=== PATIENT | female | born 1940 | race Caucasian/White ===

== ENCOUNTER 2017-05-21 08:23 | Day surgery (SDC) | payer MEDICARE, BC ==
[~2017-05-21 08:23] MED LIST: Lactated Ringers 1,000 ML IV SCH; Lidocaine 1%/Sod Bicarbonate in NS 8.4% 1 ML Syringe PRN; Sodium Chloride 0.9% 10 ML Syringe FLUSH PRN
--- NOTE | 2017-05-21 09:26 | PCM.PREANE ---
Preanesthetic Assessment - Procedure Proposed Procedure: Diagnostic colonoscopy - Anesthesia/Transfusion/Family Hx Anesthesia History: Prior Anesthesia Without Reaction Family History of Anesthesia Reaction: No Transfusion History: No Prior Transfusion(s) - Review of Systems General: No Symptoms Pulmonary: No Symptoms Cardiovascular: No Symptoms Gastrointestinal: No symptoms Neurological: No Symptoms Other: Reports: Easy Bruising, Thyroid Problems (hypothyroidism) - Physical Assessment NPO Status Date: 05/20/17 NPO Status Time: 23:00 O2 Sat by Pulse Oximetry: 97 Respiratory Rate: 16 Vital Signs: Last Vital Signs Temp 37.0 C 05/21/17 08:30 Pulse 66 05/21/17 08:30 Resp 16 05/21/17 08:30 BP 131/51 L 05/21/17 08:30 Pulse Ox 97 05/21/17 08:30 Height: 1.68 m Weight: 61.689 kg ASA Class: 2 Mental Status: Alert & Oriented x3 Airway Class: Mallampati = 1 Dentition: Reports: Normal Dentition, Dentures (upper and lower ) Thyro-Mental Finger Breadths: 3 Mouth Opening Finger Breadths: 3 ROM/Head Extension: Full Lungs: Clear to auscultation, Normal respiratory effort Cardiovascular: Regular Rate, Regular Rhythm - Allergies Allergies/Adverse Reactions: Allergies Allergy/AdvReac Type Severity Reaction Status Date / Time grass pollen Allergy Cannot Verified 05/21/17 08:50 Remember levofloxacin Allergy Cannot Verified 05/21/17 08:50 Remember - Blood Blood Available: No Product(s) Available: None - Anesthesia Plan Pre-Op Medication Ordered: None - Acknowledgements Anesthesia Type Planned: MAC Pt an Appropriate Candidate for the Planned Anesthesia: Yes Alternatives and Risks of Anesthesia Discussed w Pt/Guardian: Yes Pt/Guardian Understands and Agrees with Anesthesia Plan: Yes PreAnesthesia Questionnaire HEENT History: Reports: Sinusitis, Other (See Below) Other HEENT History: wears dentures Cardiovascular History: Reports: Hypertension, Other (See Below) Other Cardiovascular History: atypical chest pain, edema Respiratory History: Reports: Bronchitis, Recurrent, Other (See Below) Other Respiratory History: cough Genitourinary History: Reports: UTI, Recurrent 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: Musculoskeletal History: Reports: Arthritis, Osteoporosis, Other (See Below) Other Musculoskeletal History: adhesive capsulitis of bialteral shoulders, generalized muscle weakness Neurological History: Reports: Other (See Below) Other Neuro History: cervical radiculopathy Psychiatric History: Reports: Other (See Below) Other Psychiatric History: fatigue Endocrine/Metabolic History: Reports: Hypothyroidism Hematologic History: Reports: Other (See Below) Other Hematologic History: hypokalemia Immunologic History: Reports: Other (See Below) Other Immunologic History: herpes zoster virus Oncologic (Cancer) History: Reports: None Dermatologic History: Reports: Other (See Below) Other Dermatologic History: non healing skin lesion of nose - Infectious Disease History Infectious Disease History: Reports: Other (See Below) Other Infectious Disease History: herpes zoster virus - Past Surgical History Head Surgeries/Procedures: Reports: None HEENT Surgical History: Reports: Cataract Surgery GI Surgical History: Reports: Cholecystectomy Female Surgical History: Reports: Section, Tubal Ligation Musculoskeletal Surgical History: Reports: Other (See Below) Other Musculoskeletal Surgeries/Procedures:: knee surgery, low back surgery Oncologic Surgical History: Reports: None - SUBSTANCE USE Smoking Status *Q: Current Some Day Smoker (1pack every 2 days for 50 years) Second Hand Smoke Exposure: No Recreational Drug Use History: No - HOME MEDS Home Medications: Home Meds Biotin 5,000 mg PO DAILY 05/20/17 [History] Calcium Carbonate/Vitamin D3 [Calcium 500 + Vit D Caplet] 3 tab PO DAILY [History] Cholecalciferol (Vitamin D3) [Vitamin D3] 1,000 unit PO DAILY 05/20/17 [History] Cinnamon Bark [Cinnamon] 1,000 mg PO DAILY 05/20/17 [History] Hydrochlorothiazide 12.5 mg PO DAILY 05/20/17 [History] Magnesium 200 mg PO DAILY 05/20/17 [History] Niacin 500 mg PO DAILY 05/20/17 [History] Matador-3/DHA/Epa/Fish Oil [Fish Oil 1,000 mg Softgel] 1 cap PO DAILY 05/20/17 [ History] Vitamin C/Biotin [Hair, Skin and Nails Gummies] 1 tab PO DAILY 05/20/17 [History ] - CURRENT (IN HOUSE) MEDS Current Meds: Current Medications Lactated Ringer's (Ringers, Lactated) 1,000 mls @ 125 mls/hr IV ASDIRECTED JEREMIAS Stop: 05/21/17 23:00 Last Admin: 05/21/17 08:45 Dose: 125 mls/hr Lidocaine/Sodium Bicarbonate (Buffered Lidocaine 1% In Ns 8.4%) 0.25 ml .XX ONETIME PRN PRN Reason: Prior to IV Start Stop: 05/21/17 18:00 Last Admin: 05/21/17 08:45 Dose: 0.25 ml Sodium Chloride (Saline Flush) 10 ml FLUSH ASDIRECTED PRN PRN Reason: Keep Vein Open Stop: 05/21/17 18:00
[2017-05-21] MEDS ORDERED: Propofol 200 MG/20 ML SDV ONE ×2 (10:08→11:24)
--- NOTE | 2017-05-21 11:37 | PCM48HPAN ---
Post Anesthesia Note - EVALUATION WITHIN 48HRS OF ANESTHETIC Vital Signs in Normal Range: Yes Patient Participated in Evaluation: Yes Respiratory Function Stable: Yes Airway Patent: Yes Cardiovascular Function Stable: Yes Hydration Status Stable: Yes Pain Control Satisfactory: Yes Nausea and Vomiting Control Satisfactory: Yes Mental Status Recovered: Yes
--- NOTE | 2017-05-21 11:39 | PCM.OPNOTE ---
[id number] with cold forceps polypectomy of a rectal polyp and a diminutive sigmoid polyp Findings: 1. External hemorrhoid with anal tag 2. Sigmoid diverticulosis 3. Diminutive rectal polyp and sigmoid polyp both less than 5 mm in diameter 4. Grossly normal ileocecal valve No gross large mass lesions. Pre Op Diagnosis: History of weight loss and a thickened terminal ileum by CT scan Post-Op Diagnosis: 1. Diminutive sigmoid and rectal polyps. 2. Sigmoid diverticulosis. 3. Anal tags Anesthesia Technique: MAC, Moderate Sedation Primary Surgeon: Carl Garcia Pathology: Small polyps EBL in mLs: 0 Complications: None Free Text/Narrative:: After adequate IV sedation and analgesia was obtained the patient was placed on her left side. Perianal inspection and digital rectal examination were performed next and were remarkable for anal tags. A lubricated colonoscope was inserted into the rectum and advanced under direct vision to the cecum. The terminal ileum was identified and briefly intubated and the mucosa as well as the ileocecal valve area were grossly normal. Technical difficulties prevented me from reintubating the terminal ileum to perform a biopsy. The cecum right colon transverse and descending colons were endoscopically normal. There were diminutive polyps in the rectum and sigmoid which were removed with cold forceps. The specimens were retrieved and the areas were hemostatic. The rectum was otherwise unremarkable. Air was removed as I finished the procedure which she tolerated well. Line Worker photographs were taken for the patient for the record.
[2017-05-21] MEDS ORDERED: Lactated Ringers 1,000 ML ONE (11:43)
[2017-05-21 12:10] VITALS: BP 129/62
== END 2017-05-21 12:05 | disposition home or self-care (01) ==
LOC: JD.SDS 08:23
PROVIDERS: ATTEND Surgery
PROC: 0DBP8ZZ Excision of Rectum, Via Natural or Artificial Opening Endoscopic (ICD-10-PCS; principal; 2017-05-21)
PROC: 0DBN8ZZ Excision of Sigmoid Colon, Via Natural or Artificial Opening Endoscopic (ICD-10-PCS; 2017-05-21)
DX: K63.5 Polyp of colon (principal); K62.1 Rectal polyp; K57.30 Diverticulosis of large intestine without perforation or abscess without bleeding; K64.4 Residual hemorrhoidal skin tags; M54.12 Radiculopathy, cervical region; M19.90 Unspecified osteoarthritis, unspecified site; R53.82 Chronic fatigue, unspecified; I10 Essential (primary) hypertension; E87.6 Hypokalemia; E03.9 Hypothyroidism, unspecified; F17.210 Nicotine dependence, cigarettes, uncomplicated; M81.0 Age-related osteoporosis without current pathological fracture; Z87.440 Personal history of urinary (tract) infections; Z86.19 Personal history of other infectious and parasitic diseases; Z88.1 Allergy status to other antibiotic agents; Z91.048 Other nonmedicinal substance allergy status; Z79.899 Other long term (current) drug therapy; Z98.51 Tubal ligation status; Z98.49 Cataract extraction status, unspecified eye; Z90.49 Acquired absence of other specified parts of digestive tract; Z98.890 Other specified postprocedural states
CPT/HCPCS: 45380; 88305; J7120; 00810; J2704

== ENCOUNTER 2019-10-13 13:51 | Emergency (ER) | payer MEDICARE, BC ==
[2019-10-13 15:08] VITALS: BP 149/77; PULSE 70
[2019-10-13] MEDS ORDERED: Sodium Chloride 0.9% 10 ML Syringe FLUSH PRN (15:29)
--- NOTE | 2019-10-13 15:29 | EDM.PDOC ---
ED HPI GENERAL MEDICAL PROBLEM - General Chief Complaint: Gastrointestinal Problem Stated Complaint: DIARRHEA Time Seen by Provider: 10/13/19 15:15 Source of Information: Reports: Patient, RN Notes Reviewed History Limitations: Reports: No Limitations - History of Present Illness INITIAL COMMENTS - FREE TEXT/NARRATIVE: Patient is an 78-year-old female who presents to the ED for the evaluation of diarrhea. She did discuss this with her primary care doctor, Dr. Leilani Mann, and was told to take probiotics for this. But she states she is still having multiple dark explosive stools, that she cannot control. Patient could not get a clinic appointment today, so she comes to the ER for evaluation. The patient states that she has been using Pepto-Bismol, and the probiotics since September for this diarrhea, however nothing seems to really be helping. She denies any fevers or chills, abdominal cramping, or antibiotic use prior to this. She further denies any urinary issues. She states that she does have some stool incontinence, and that she has had to change bed sheets, as she has not been able to make it to the bathroom in time. She further denies any nausea or vomiting, and states that she is eating and drinking as she would normally. She denies any dizziness, or lightheadedness. She notes that she had a colonoscopy done about 2 years ago, and was told this was within normal limits. Patient denies any recent health issues, and states that she thinks she is in fairly good health. The patient cannot really remember the last time she had a good formed stool. - Related Data Allergies Allergy/AdvReac Type Severity Reaction Status Date / Time grass pollen Allergy Cannot Verified 10/13/19 14:08 Remember levofloxacin Allergy Cannot Verified 10/13/19 14:08 Remember Home Meds: Home Meds Biotin 5,000 mg PO DAILY 05/20/17 [History] Calcium Carbonate/Vitamin D3 [Calcium 500 + Vit D Caplet] 3 tab PO DAILY [History] Cholecalciferol (Vitamin D3) [Vitamin D3] 1,000 unit PO DAILY 05/20/17 [History] Cinnamon Bark [Cinnamon] 1,000 mg PO DAILY 05/20/17 [History] Hydrochlorothiazide 12.5 mg PO DAILY 05/20/17 [History] Magnesium 200 mg PO DAILY 05/20/17 [History] Niacin 500 mg PO DAILY 05/20/17 [History] Vitamin C/Biotin [Hair, Skin and Nails Gummies] 1 tab PO DAILY 05/20/17 [History ] Cilostazol 100 mg PO DAILY 10/13/19 [History] atorvaSTATin [Lipitor] 20 mg PO BEDTIME 10/13/19 [History] Past Medical History HEENT History: Reports: Sinusitis, Other (See Below) Other HEENT History: wears dentures Cardiovascular History: Reports: Hypertension, Other (See Below) Other Cardiovascular History: atypical chest pain, edema Respiratory History: Reports: Bronchitis, Recurrent, Other (See Below) Other Respiratory History: cough Gastrointestinal History: Reports: Cholelithiasis, Chronic Diarrhea Other Gastrointestinal History: colonoscopy within the last year Genitourinary History: Reports: UTI, Recurrent 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: Musculoskeletal History: Reports: Arthritis, Osteoporosis, Other (See Below) Other Musculoskeletal History: adhesive capsulitis of bialteral shoulders, generalized muscle weakness Neurological History: Reports: Other (See Below) Other Neuro History: cervical radiculopathy Psychiatric History: Reports: Other (See Below) Other Psychiatric History: fatigue Endocrine/Metabolic History: Reports: Hypothyroidism Hematologic History: Reports: Other (See Below) Other Hematologic History: hypokalemia Immunologic History: Reports: Other (See Below) Other Immunologic History: herpes zoster virus Oncologic (Cancer) History: Reports: None Dermatologic History: Reports: Other (See Below) Other Dermatologic History: non healing skin lesion of nose taken care of in 2018 - Infectious Disease History Infectious Disease History: Reports: Chicken Pox, Herpes Other Infectious Disease History: herpes zoster virus - Past Surgical History Head Surgeries/Procedures: Reports: None HEENT Surgical History: Reports: Cataract Surgery GI Surgical History: Reports: Cholecystectomy Female Surgical History: Reports: Section, Tubal Ligation Musculoskeletal Surgical History: Reports: Other (See Below) Other Musculoskeletal Surgeries/Procedures:: knee surgery, low back surgery Oncologic Surgical History: Reports: None Social & Family History - Family History Cardiac: Reports: CAD, AR, Stent GI: Reports: Other (See Below) Other GI Family History: chrones - Tobacco Use Smoking Status *Q: Current Some Day Smoker Years of Tobacco use: 60 Packs/Tins Daily: 0.2 - Caffeine Use Caffeine Use: Reports: Coffee, Tea - Recreational Drug Use Recreational Drug Use: No ED ROS GENERAL - Review of Systems Review Of Systems: See Below Constitutional: Denies: Fever, Chills, Weakness, Decreased Appetite, Weight Loss Respiratory: Denies: Shortness of Breath Cardiovascular: Denies: Chest Pain GI/Abdominal: Reports: Black Stool, Diarrhea. Denies: Abdominal Pain, Decreased Appetite, Nausea, Vomiting : Denies: Dysuria, Frequency, Urgency Musculoskeletal: Denies: Back Pain ED EXAM, GI/ABD - Physical Exam Exam: See Below Exam Limited By: No Limitations General Appearance: Alert, WD/WN, No Apparent Distress Eyes: Bilateral: Normal Appearance Throat/Mouth: Normal Inspection, Normal Lips, Normal Teeth, Normal Gums, Normal Oropharynx, Normal Voice, No Airway Compromise Head: Atraumatic, Normocephalic Neck: Normal Inspection Respiratory/Chest: No Respiratory Distress, Lungs Clear, Normal Breath Sounds, No Accessory Muscle Use, Chest Non-Tender Cardiovascular: Normal Peripheral Pulses, Regular Rate, Rhythm, No Edema, No Murmur GI/Abdominal Exam: Normal Bowel Sounds, Soft, Non-Tender, No Distention, No Mass Rectal (Female) Exam: Normal Exam, Normal Rectal Tone, Heme - Stool (dark brown formed soft stool noted on glove). No: Tenderness Extremities: Normal Inspection, Normal Capillary Refill Neurological: Alert, Oriented, Normal Cognition, No Motor/Sensory Deficits Psychiatric: Normal Affect, Normal Mood Skin Exam: Warm, Dry, Intact, Normal Color, No Rash Course - Vital Signs Last Recorded V/S: Last Vital Signs Temp 98.4 F 10/13/19 15:06 Pulse 70 10/13/19 15:06 Resp 28 H 10/13/19 15:06 BP 149/77 H 10/13/19 15:06 Pulse Ox 92 L 10/13/19 15:06 - Orders/Labs/Meds Orders: Active Orders 24 hr Category Date Time Status Peripheral IV Care [RC] . DIRECTED Care 10/13/19 15:30 Active C DIFFICILE PCR W/REFLEX [MOLEC] Stat Lab 10/13/19 16:04 Ordered CULTURE STOOL + SHIGATOX [RM] Stat Lab 10/13/19 16:03 Ordered TYPE AND SCREEN [BBK] Stat Lab 10/13/19 15:53 Stop Req Sodium Chloride 0.9% [Saline Flush] Med 10/13/19 15:29 Active 10 ml FLUSH ASDIRECTED PRN Peripheral IV Insertion Adult [OM.PC] Routine Oth 10/13/19 15:29 Ordered Medication Orders Sodium Chloride (Saline Flush) 10 ml FLUSH ASDIRECTED PRN PRN Reason: Keep Vein Open Last Admin: 10/13/19 16:21 Dose: 10 ml Labs: Laboratory Tests 10/13/19 10/13/19 Range/Units 15:53 15:53 WBC 3.96 L (3.98-10.04) K/mm3 RBC 4.49 (3.98-5.22) M/mm3 Hgb 12.3 (11.2-15.7) gm/dl Hct 37.3 (34.1-44.9) % MCV 83.1 (79.4-94.8) fl MCH 27.4 (25.6-32.2) pg MCHC 33.0 (32.2-35.5) g/dl RDW Std Deviation 45.9 (36.4-46.3) fL Plt Count 252 (182-369) K/mm3 MPV 9.9 (9.4-12.3) fl Neut % (Auto) 49.2 (34.0-71.1) % Lymph % (Auto) 37.1 (19.3-51.7) % Summers % (Auto) 11.6 (4.7-12.5) % Eos % (Auto) 1.5 (0.7-5.8) Baso % (Auto) 0.3 (0.1-1.2) % Neut # (Auto) 1.95 (1.56-6.13) K/mm3 Lymph # (Auto) 1.47 (1.18-3.74) K/mm3 Summers # (Auto) 0.46 H (0.24-0.36) K/mm3 Eos # (Auto) 0.06 (0.04-0.36) K/mm3 Baso # (Auto) 0.01 (0.01-0.08) K/mm3 Sodium 140 (136-145) mEq/L Potassium 3.4 L (3.5-5.1) mEq/L Chloride 103 (98-107) mEq/L Carbon Dioxide 27 (21-32) mEq/L Anion Gap 13.4 (5-15) BUN 15 (7-18) mg/dL Creatinine 0.7 (0.55-1.02) mg/dL Est Cr Clr Drug Dosing 57.68 mL/min Estimated GFR (MDRD) > 60 (>60) mL/min BUN/Creatinine Ratio 21.4 H (14-18) Glucose 87 (83-115) mg/dL Calcium 9.4 (8.5-10.1) mg/dL Total Bilirubin 0.5 (0.2-1.0) mg/dL AST 27 (15-37) U/L ALT 20 (14-59) U/L Alkaline Phosphatase 71 (46-116) U/L Total Protein 7.3 (6.4-8.2) g/dl Albumin 3.0 L (3.4-5.0) g/dl Globulin 4.3 gm/dL Albumin/Globulin Ratio 0.7 L (1-2) Meds: Medications Generic Name Dose Route Start Last Admin Trade Name Freq PRN Reason Stop Dose Admin Sodium Chloride 10 ml 10/13/19 15:29 10/13/19 16:21 Saline Flush FLUSH 10 ml ASDIRECTED PRN Administration Keep Vein Open - Re-Assessments/Exams Free Text/Narrative Re-Assessment/Exam: 10/13/19 16:13 Patient presents to the ED for the evaluation of diarrhea like stools for multiple weeks. Did order CBC, CMP for initial evaluation, with an IV to be placed, in case we should need to give her IV fluids. I believe that her black stools are due to the Pepto use. At this point in time I am quite unsure as to what is causing her diarrhea stools. Will obtain stool studies if she is able to provide us with a sample. 10/13/19 18:35 She has not been able to provide us with a stool sample, and labs are essentially within normal limits, and there is no acute worrisome metabolic abnormalities. We will have her try some loperamide if she wants symptomatic relief, otherwise have her start clear liquid diet for the next few days and advance to bland as tolerated see if this does not help some of the symptoms. Of note, the patient is on cilostazol, a common side effect of this drug is diarrhea upon review of her medication list. This was noted by Dr. Jain after he came on shift. Departure - Departure Time of Disposition: 18:36 Disposition: Home, Self-Care 01 Condition: Fair Clinical Impression: Diarrhea Qualifiers: Diarrhea type: unspecified type Qualified Code(s): R19.7 - Diarrhea, unspecified - Discharge Information *PRESCRIPTION DRUG MONITORING PROGRAM REVIEWED*: No *COPY OF PRESCRIPTION DRUG MONITORING REPORT IN PATIENT ZULAY: No Instructions: Diarrhea, Adult, [id number] Referrals: Leilani Mann MD [Primary Care Provider] - Forms: ED Department Discharge Additional Instructions: You have been evaluated in the ED for diarrhea. Over the next 24-48 hours please try to limit diet to clear liquids and advance as tolerate to a bland diet to alleviate symptoms of diarrhea. Please refrain from use of Pepto-Bismol, as this can cause your stools to turn dark black. Recommend use of Imodium for diarrhea like stools. Use the instructions listed on the label. Also please continue to use probiotics as previously prescribed by your regular provider. Your laboratory evaluation demonstrated no acute worrisome abnormalities, and you did not have blood in your stool at this time. Please follow-up with your regular care provider for further symptomatic management regarding this diarrhea. Please return to the ED if your symptoms should change or worsen. Sepsis Event Note - Evaluation Sepsis Screening Result: No Definite Risk - Focused Exam Vital Signs: Vital Signs Temp Pulse Resp BP Pulse Ox 10/13/19 15:06 98.4 F 70 28 H 149/77 H 92 L 10/13/19 14:14 98.0 F 80 16 144/79 H 94 L Date Exam was Performed: 10/13/19 Time Exam was Performed: 22:06 - My Orders Last 24 Hours: My Active Orders 10/13/19 15:29 Sodium Chloride 0.9% [Saline Flush] 10 ml FLUSH ASDIRECTED PRN Peripheral IV Insertion Adult [OM.PC] Routine 10/13/19 15:30 Peripheral IV Care [RC] . DIRECTED 10/13/19 15:53 TYPE AND SCREEN [BBK] Stat 10/13/19 16:03 CULTURE STOOL + SHIGATOX [RM] Stat 10/13/19 16:04 C DIFFICILE PCR W/REFLEX [MOLEC] Stat - Assessment/Plan Last 24 Hours: My Active Orders 10/13/19 15:29 Sodium Chloride 0.9% [Saline Flush] 10 ml FLUSH ASDIRECTED PRN Peripheral IV Insertion Adult [OM.PC] Routine 10/13/19 15:30 Peripheral IV Care [RC] . DIRECTED 10/13/19 15:53 TYPE AND SCREEN [BBK] Stat 10/13/19 16:03 CULTURE STOOL + SHIGATOX [RM] Stat 10/13/19 16:04 C DIFFICILE PCR W/REFLEX [MOLEC] Stat
== END 2019-10-13 18:45 | disposition home or self-care (01) ==
LOC: JD.ED 13:51
DX: R19.7 Diarrhea, unspecified (principal); I10 Essential (primary) hypertension; Z88.1 Allergy status to other antibiotic agents; Z91.09 Other allergy status, other than to drugs and biological substances; Z79.899 Other long term (current) drug therapy; F17.210 Nicotine dependence, cigarettes, uncomplicated
CPT/HCPCS: 36415; 80053; 85025; 86850; 86900; 86901; 99284

== ENCOUNTER 2020-12-21 22:42 | Inpatient (IN) | payer MEDICARE, BC ==
--- NOTE | 2020-12-21 22:54 | EDM.PDOC ---
ED HPI GENERAL MEDICAL PROBLEM - General Chief Complaint: Neuro Symptoms/Deficits Stated Complaint: [facility] Time Seen by Provider: 12/21/20 22:50 Source of Information: Reports: EMS History Limitations: Reports: Altered Mental Status - History of Present Illness INITIAL COMMENTS - FREE TEXT/NARRATIVE: A stroke alert was called for this patient. Ms. Carmona is a very pleasant 79-year-old woman who is now brought to the ED by EMS after her son found her on the floor with left-sided facial weakness and left hemiparesis. Her last known normal was not known to us at this time, however, we are told that the patient's son is on his way to the ED, and we will ask him that when he gets here. EMS reported that the patient complained of a headache this afternoon, but denied having any pain to them. They reported that she had left-sided neglect with pronator drift. Here in the ED, the patient's initial BP is found to be mildly elevated at 144/65, otherwise, she is hemodynamically stable, afebrile, saturating 95% on room air. Having no apparent respiratory difficulties, the patient was taken immediately to CT scan. Due to the situation, her recent review of systems is not available to us. The patient's PCP is Dr. Leilani Mann. - Related Data Allergies Allergy/AdvReac Type Severity Reaction Status Date / Time grass pollen Allergy Cannot Verified 12/21/20 22:56 Remember levofloxacin Allergy Cannot Verified 12/21/20 22:56 Remember Home Meds: Home Meds Biotin 5,000 mg PO DAILY 05/20/17 [History] Calcium Carbonate/Vitamin D3 [Calcium 500-Vit D3 125 Caplet] 3 tab PO DAILY 05/20/17 [History] Cholecalciferol (Vitamin D3) [Vitamin D3] 1,000 unit PO DAILY 05/20/17 [History] Cinnamon Bark [Cinnamon] 1,000 mg PO DAILY 05/20/17 [History] Hydrochlorothiazide 12.5 mg PO DAILY 05/20/17 [History] Magnesium 200 mg PO DAILY 05/20/17 [History] Niacin 500 mg PO DAILY 05/20/17 [History] Vitamin C/Biotin [Hair, Skin and Nails Gummies] 1 tab PO DAILY 05/20/17 [History] Benzonatate 100 mg PO TID 12/21/20 [History] Gabapentin [Neurontin] 100 mg PO TID 12/21/20 [History] Gabapentin [Neurontin] 300 mg PO TID PRN 12/21/20 [History] Hydrocodone/Acetaminophen [Hydrocodone-Acetamin 10-325 mg] 1 each PO Q4H PRN 12/21/20 [History] Hydrocodone/Acetaminophen [Hydrocodone-Acetamin 5-325 mg] 1 each PO Q4H PRN 12/21/20 [History] Past Medical History Cardiovascular History: Reports: Hypertension Gastrointestinal History: Reports: Cholelithiasis Musculoskeletal History: Reports: Osteoarthritis, Osteoporosis, Other (See Below) (Bilateral adhesive capsulitis) Neurological History: Reports: Other (See Below) (Cervical radiculopathy) Endocrine/Metabolic History: Reports: Hypothyroidism - Infectious Disease History Infectious Disease History: Reports: Chicken Pox, Herpes, Shingles - Past Surgical History HEENT Surgical History: Reports: Cataract Surgery, Oral Surgery (dental extractions/dentures) GI Surgical History: Reports: Cholecystectomy, Colonoscopy Female Surgical History: Reports: Section, Tubal Ligation Neurological Surgical History: Reports: Lumbar Spine Musculoskeletal Surgical History: Reports: Other (See Below) (knee surgery) Social & Family History - Caffeine Use Caffeine Use: Reports: Coffee, Tea ED ROS GENERAL - Review of Systems Review Of Systems: Unable To Obtain Reason Not Obtained: AMS ED EXAM, NEURO - Physical Exam Exam: See Below Exam Limited By: No Limitations General Appearance: WD/WN, No Apparent Distress, Other (Patient initially awake upon arrival to ED, but was somnolent/drowsy upon return from CT) Eye Exam: Bilateral Eye: EOMI (looks only to the right) Ears: Normal External Exam Nose: Normal Inspection Throat/Mouth: Normal Inspection, Normal Lips, No Airway Compromise Head Exam: Atraumatic, Normocephalic Neck: Normal Inspection, Full Range of Motion Respiratory/Chest: No Respiratory Distress, Lungs Clear, Normal Breath Sounds, No Accessory Muscle Use Cardiovascular: Normal Peripheral Pulses, Regular Rate, Rhythm, No Edema, No Gallop, No JVD, No Murmur, No Rub GI/Abdominal: Normal Bowel Sounds, Soft, Non-Tender, No Organomegaly, No Distention, No Abnormal Bruit, No Mass Neurological: Other (left facial droop, left hemiparesis with left-sided neglect) Back Exam: Normal Inspection, Full Range of Motion, NT Extremities: Normal Inspection, Normal Range of Motion, No Pedal Edema, Normal Capillary Refill Skin Exam: Warm, Dry, Intact, Normal Color, No Rash #1 Interpretation EKG Date: 12/21/20 Time: 22:57 Rhythm: NSR Rate (Beats/Min): 61 Chester: 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) P-Wave: Present (1st degree AVB) QRS: Normal ST-T: Normal QT: Prolonged (QTc 519 ms) Comparison: NA - No Prior EKG Course - Vital Signs Last Recorded V/S: Last Vital Signs Temp 36.9 C 12/22/20 03:31 Pulse 57 L 12/22/20 03:34 Resp 20 12/22/20 03:31 BP 156/103 H 12/22/20 03:31 Pulse Ox 98 12/22/20 03:34 - Orders/Labs/Meds Orders: Active Orders 24 hr Category Date Time Status Accu Check [Blood Glucose Check, Bedside] [RC] ONETIME Care 12/21/20 22:52 Active EKG Documentation Completion [RC] STAT Care 12/21/20 22:51 Active Head wo Cont [CT] Stat Exams 12/21/20 22:50 Taken Labs: Laboratory Tests 12/21/20 12/21/20 12/21/20 Range/Units 22:57 22:59 22:59 WBC 4.63 (3.98-10.04) K/mm3 RBC 4.00 (3.98-5.22) M/mm3 Hgb 10.8 L (11.2-15.7) gm/dl Hct 33.7 L (34.1-44.9) % MCV 84.3 D (79.4-94.8) fl MCH 27.0 (25.6-32.2) pg MCHC 32.0 L (32.2-35.5) g/dl RDW Std Deviation 44.2 (36.4-46.3) fL Plt Count 226 (182-369) K/mm3 MPV 10.7 (9.4-12.3) fl Neutrophils % (Manual) 68 H (40-60) % Band Neutrophils % 0 (0-10) % Lymphocytes % (Manual) 28 (20-40) % Atypical Lymphs % 0 % Monocytes % (Manual) 3 (2-10) % Eosinophils % (Manual) 1 (0.7-5.8) % Basophils % (Manual) 0 L (0.1-1.2) Platelet Estimate Adequate RBC Morph Comment Normal PT 11.0 (9.7-12.0) SECONDS INR 1.03 APTT 27.3 (21.7-31.4) SECONDS Sodium (136-145) mEq/L Potassium (3.5-5.1) mEq/L Chloride (98-107) mEq/L Carbon Dioxide (21-32) mEq/L Anion Gap (5-15) BUN (7-18) mg/dL Creatinine (0.55-1.02) mg/dL Est Cr Clr Drug Dosing mL/min Estimated GFR (MDRD) (>60) mL/min BUN/Creatinine Ratio (14-18) Glucose (83-115) mg/dL POC Glucose 141 H (83-110) mg/dL Calcium (8.5-10.1) mg/dL Magnesium (1.8-2.4) mg/dl Total Bilirubin (0.2-1.0) mg/dL AST (15-37) U/L ALT (14-59) U/L Alkaline Phosphatase (46-116) U/L Total Protein (6.4-8.2) g/dl Albumin (3.4-5.0) g/dl Globulin gm/dL Albumin/Globulin Ratio (1-2) SARS-CoV-2 RNA (MIGUELINA) (NEGATIVE) 12/21/20 12/21/20 Range/Units 22:59 23:08 WBC (3.98-10.04) K/mm3 RBC (3.98-5.22) M/mm3 Hgb (11.2-15.7) gm/dl Hct (34.1-44.9) % MCV (79.4-94.8) fl MCH (25.6-32.2) pg MCHC (32.2-35.5) g/dl RDW Std Deviation (36.4-46.3) fL Plt Count (182-369) K/mm3 MPV (9.4-12.3) fl Neutrophils % (Manual) (40-60) % Band Neutrophils % (0-10) % Lymphocytes % (Manual) (20-40) % Atypical Lymphs % % Monocytes % (Manual) (2-10) % Eosinophils % (Manual) (0.7-5.8) % Basophils % (Manual) (0.1-1.2) Platelet Estimate RBC Morph Comment PT (9.7-12.0) SECONDS INR APTT (21.7-31.4) SECONDS Sodium 143 (136-145) mEq/L Potassium 3.1 L (3.5-5.1) mEq/L Chloride 107 (98-107) mEq/L Carbon Dioxide 27 (21-32) mEq/L Anion Gap 12.1 (5-15) BUN 14 (7-18) mg/dL Creatinine 0.7 (0.55-1.02) mg/dL Est Cr Clr Drug Dosing 56.72 mL/min Estimated GFR (MDRD) > 60 (>60) mL/min BUN/Creatinine Ratio 20.0 H (14-18) Glucose 124 H (83-115) mg/dL POC Glucose (83-110) mg/dL Calcium 8.7 (8.5-10.1) mg/dL Magnesium 1.8 (1.8-2.4) mg/dl Total Bilirubin 0.6 (0.2-1.0) mg/dL AST 18 (15-37) U/L ALT 16 (14-59) U/L Alkaline Phosphatase 80 (46-116) U/L Total Protein 6.8 (6.4-8.2) g/dl Albumin 2.8 L (3.4-5.0) g/dl Globulin 4.0 gm/dL Albumin/Globulin Ratio 0.7 L (1-2) SARS-CoV-2 RNA (MIGUELINA) Negative (NEGATIVE) - Re-Assessments/Exams Free Text/Narrative Re-Assessment/Exam: 12/21/20 22:52 As above, the patient is brought to the ED after being found on the ground by her son, with left-sided facial droop and left hemiparesis. Unknown last normal, although I will ask that of the son when he gets here. The patient went emergently for CT of the head. 12/21/20 23:01 The patient's Accu-Chek is 141. The CT of the head without contrast appears to demonstrate a very large right hemisphere intracranial hemorrhage with surrounding edema. Formal read per the Radiologist is pending, however, I have pushed the CT images to [facility]. 12/21/20 23:39 CT of the head without contrast is read by Alena as "Acute intraparenchymal hemorrhage in the right cerebral hemisphere measuring up to 5.1 x 4.3 x 5.0 cm. Moderate amount of surrounding vasogenic edema. Small amount of adjacent acute subarachnoid hemorrhage. Mass-effect with right to left midline shift measuring [address] images were pushed to [facility] at 23:01. Case discussed with Lilia at [facility] at 23:02. Unfortunately, they have no beds. Case then discussed with Michelle [facility] at 23:06. The CT images were pushed to [facility] at 23:07. Case then discussed with Dr. Johnson, Neurosurgeon at [facility], at 23:08. He did not feel that it was appropriate to operate on patient with this condition as her prognosis is extremely poor. He was not suggesting, however, that another Neurosurgeon may not be willing to take the patient to the OR. The CT images were pushed to [facility] at 23:11. Case then discussed with Anna at [facility] at 23:12. Case then discussed with Dr. Cook, Neurosurgeon at [facility], at 23:14. He had not had an opportunity to look at the CT images, but based on the CT report, he wanted to know how aggressive the patient's son would want to be, and what the patient's CODE STATUS was. The plan was made for me to go talk to the patient's son, while he reviewed the CT results, then connect a few minutes later. The situation was then discussed with 2 of the patient's sons. They stated that she was normal at 830 tonight, even doing her taxes today. She was found on the floor around 10:00 tonight. They indicated that they would probably not want to be too aggressive with her medical management, given the situation. I was reconnected with Dr. Cook at 23:28. After reviewing the CT images, he recommended against surgery. He stated that a bleed such as this would most likely be fatal, although he could not predict how long. If the 12/22/20 00:51 The patient's CBC is remarkable for mild anemia, with an H/H mildly depressed at 10.8/33.7, and the remainder of her CBC being unremarkable. Her CMP is remarkable for mild hypokalemia of 3.1, and mild hyperglycemia of 124, with the remainder of her CMP being unremarkable. Her magnesium level is within normal limits at 1.8. Her coags are within normal limits. Her swab for the SARS-CoV-2 virus returned negative. Case discussed with Dr. Mejia at 00:42. She accepted the patient for placement into observation for palliative care, and asked that I write bridge orders. Departure - Departure Time of Disposition: 00:53 Disposition: Refer to Observation Condition: Critical Clinical Impression: Intracranial hemorrhage - Discharge Information *PRESCRIPTION DRUG MONITORING PROGRAM REVIEWED*: Not Applicable *COPY OF PRESCRIPTION DRUG MONITORING REPORT IN PATIENT ZULAY: Not Applicable Sepsis Event Note (ED) - Focused Exam Vital Signs: Vital Signs Temp Pulse Resp BP Pulse Ox 12/22/20 00:40 88 L 12/22/20 00:15 53 L 14 147/63 H 93 L 12/22/20 00:00 52 L 16 154/66 H 90 L 12/21/20 22:52 36.2 C 67 20 144/65 H 95 - My Orders Last 24 Hours: My Active Orders 12/21/20 22:50 Head wo Cont [CT] Stat 12/21/20 22:51 EKG Documentation Completion [RC] STAT 12/21/20 22:52 Accu Check [Blood Glucose Check, Bedside] [RC] ONETIME - Assessment/Plan Last 24 Hours: My Active Orders 12/21/20 22:50 Head wo Cont [CT] Stat 12/21/20 22:51 EKG Documentation Completion [RC] STAT 12/21/20 22:52 Accu Check [Blood Glucose Check, Bedside] [RC] ONETIME
--- NOTE | 2020-12-22 07:41 | PCM.HP.2 ---
H&P History of Present Illness - General Date of Service: 12/22/20 Admit Problem/Dx: Admission Diagnosis/Problem Admission Diagnosis/Problem Intracranial hemorrhage Source of Information: Provider History Limitations: Reports: No Limitations - History of Present Illness Initial Comments - Free Text/Narative: 79 year old female presented as a stroke alert. She had left sided weakness, and a headache. The patient has been admitted for Comfort Care. She has had a hemorrhagic CVA. A CT of the head documented a large right cerebral hemispheric hemorrhage. The size is 5.1 x 4.3 x 5.0 cm; the area has as expected vasogenic edema and a mass effect with midline shift. A meeting with her POA will occur today. Onset of Symptoms: Reports: Unknown/Unsure Duration of Symptoms: Reports: Hour(s): Location: Reports: Head Severity: Moderate Improves with: Reports: None Worsens with: Reports: None Associated Symptoms: Reports: Headaches - Related Data Allergies/Adverse Reactions: Allergies Allergy/AdvReac Type Severity Reaction Status Date / Time grass pollen Allergy Cannot Verified 12/21/20 22:56 Remember levofloxacin Allergy Cannot Verified 12/21/20 22:56 Remember Home Medications: Home Meds Biotin 5,000 mg PO DAILY 05/20/17 [History] Calcium Carbonate/Vitamin D3 [Calcium 500-Vit D3 125 Caplet] 3 tab PO DAILY 05/20/17 [History] Cholecalciferol (Vitamin D3) [Vitamin D3] 5,000 unit PO DAILY 05/20/17 [History] Cinnamon Bark [Cinnamon] 1,000 mg PO DAILY 05/20/17 [History] Hydrochlorothiazide 12.5 mg PO DAILY 05/20/17 [History] Magnesium 200 mg PO DAILY 05/20/17 [History] Niacin 500 mg PO DAILY 05/20/17 [History] Vitamin C/Biotin [Hair, Skin and Nails Gummies] 1 tab PO DAILY 05/20/17 [History] Aspirin 81 mg PO DAILY 12/22/20 [History] Cyanocobalamin (Vitamin B12) [Vitamin B12] 1 tab PO DAILY 12/22/20 [History] Loratadine 10 mg PO DAILY 12/22/20 [History] Non-Formulary Medication [NF Drug] 1 puff INH DAILY 12/22/20 [History] atorvaSTATin [Lipitor] 20 mg PO DAILY 12/22/20 [History] cilostazoL [Cilostazol] 100 mg PO DAILY 12/22/20 [History] Past Medical History HEENT History: Reports: Sinusitis, Other (See Below) Other HEENT History: wears dentures Cardiovascular History: Reports: Hypertension Other Cardiovascular History: atypical chest pain, edema Respiratory History: Reports: Bronchitis, Recurrent, Other (See Below) Other Respiratory History: cough Gastrointestinal History: Reports: Cholelithiasis Other Gastrointestinal History: colonoscopy within the last year Genitourinary History: Reports: UTI, Recurrent 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: Musculoskeletal History: Reports: Osteoarthritis, Osteoporosis, Other (See Below) (Bilateral adhesive capsulitis) Other Musculoskeletal History: adhesive capsulitis of bialteral shoulders, generalized muscle weakness Neurological History: Reports: Other (See Below) (Cervical radiculopathy) Other Neuro History: cervical radiculopathy Psychiatric History: Reports: Other (See Below) Other Psychiatric History: fatigue Endocrine/Metabolic History: Reports: Hypothyroidism Hematologic History: Reports: Other (See Below) Other Hematologic History: hypokalemia Immunologic History: Reports: Other (See Below) Other Immunologic History: herpes zoster virus Oncologic (Cancer) History: Reports: None Dermatologic History: Reports: Other (See Below) Other Dermatologic History: non healing skin lesion of nose taken care of in 2018 - Infectious Disease History Infectious Disease History: Reports: Chicken Pox, Herpes, Shingles Other Infectious Disease History: herpes zoster virus - Past Surgical History HEENT Surgical History: Reports: Cataract Surgery, Oral Surgery (dental extractions/dentures) GI Surgical History: Reports: Cholecystectomy, Colonoscopy Neurological Surgical History: Reports: Lumbar Spine Musculoskeletal Surgical History: Reports: Other (See Below) (knee surgery) Social & Family History - Family History Family Medical History: No Pertinent Family History Cardiac: Reports: CAD, ND, Stent GI: Reports: Other (See Below) Other GI Family History: chrones - Tobacco Use Tobacco Use Status *Q: Current Every Day Tobacco User Years of Tobacco use: 40 Packs/Tins Daily: 0.1 - Caffeine Use Caffeine Use: Reports: Coffee - Recreational Drug Use Recreational Drug Use: No H&P Review of Systems - Review of Systems: Review Of Systems: See Below General: Reports: Weakness HEENT: Reports: No Symptoms Pulmonary: Reports: No Symptoms Cardiovascular: Reports: No Symptoms Gastrointestinal: Reports: No Symptoms Genitourinary: Reports: No Symptoms Musculoskeletal: Reports: No Symptoms Skin: Reports: No Symptoms Psychiatric: Reports: No Symptoms Neurological: Reports: Headache Hematologic/Lymphatic: Reports: No Symptoms Immunologic: Reports: No Symptoms Exam - Exam Exam: See Below - Vital Signs Vital Signs: Last Vital Signs Temp 36.9 C 12/22/20 03:31 Pulse 57 L 12/22/20 03:34 Resp 20 12/22/20 03:31 BP 156/103 H 12/22/20 03:31 Pulse Ox 98 12/22/20 03:34 Weight: 64.592 kg - Exam Quality Assessment: DVT Prophylaxis General: Alert, Oriented HEENT: EOMI, Hearing Intact, Mucosa Moist & [place] Neck: Trachea Midline Lungs: Normal Respiratory Effort Cardiovascular: Regular Rate, Regular Rhythm GI/Abdominal Exam: Normal Bowel Sounds, Soft, Non-Tender, No Organomegaly (Female) Exam: Deferred Back Exam: Normal Inspection, Full Range of Motion Extremities: Normal Inspection, Normal Range of Motion, Non-Tender, Normal Capillary Refill Skin: Warm Neurological: Cranial Nerves Intact Neuro Extensive - Mental Status: Alert, Normal Mood/Affect Neuro Extensive - Motor, Sensory, Reflexes: CN II-XII Intact Psychiatric: Alert - Patient Data Lab Results Last 24 hrs: Laboratory Results - last 24 hr 12/21/20 12/21/20 12/21/20 Range/Units 22:57 22:59 22:59 WBC 4.63 (3.98-10.04) K/mm3 RBC 4.00 (3.98-5.22) M/mm3 Hgb 10.8 L (11.2-15.7) gm/dl Hct 33.7 L (34.1-44.9) % MCV 84.3 D (79.4-94.8) fl MCH 27.0 (25.6-32.2) pg MCHC 32.0 L (32.2-35.5) g/dl RDW Std Deviation 44.2 (36.4-46.3) fL Plt Count 226 (182-369) K/mm3 MPV 10.7 (9.4-12.3) fl Neutrophils % (Manual) 68 H (40-60) % Band Neutrophils % 0 (0-10) % Lymphocytes % (Manual) 28 (20-40) % Atypical Lymphs % 0 % Monocytes % (Manual) 3 (2-10) % Eosinophils % (Manual) 1 (0.7-5.8) % Basophils % (Manual) 0 L (0.1-1.2) Platelet Estimate Adequate RBC Morph Comment Normal PT 11.0 (9.7-12.0) SECONDS INR 1.03 APTT 27.3 (21.7-31.4) SECONDS Sodium (136-145) mEq/L Potassium (3.5-5.1) mEq/L Chloride (98-107) mEq/L Carbon Dioxide (21-32) mEq/L Anion Gap (5-15) BUN (7-18) mg/dL Creatinine (0.55-1.02) mg/dL Est Cr Clr Drug Dosing mL/min Estimated GFR (MDRD) (>60) mL/min BUN/Creatinine Ratio (14-18) Glucose (83-115) mg/dL POC Glucose 141 H (83-110) mg/dL Calcium (8.5-10.1) mg/dL Magnesium (1.8-2.4) mg/dl Total Bilirubin (0.2-1.0) mg/dL AST (15-37) U/L ALT (14-59) U/L Alkaline Phosphatase (46-116) U/L Total Protein (6.4-8.2) g/dl Albumin (3.4-5.0) g/dl Globulin gm/dL Albumin/Globulin Ratio (1-2) SARS-CoV-2 RNA (MIGUELINA) (NEGATIVE) 12/21/20 12/21/20 Range/Units 22:59 23:08 WBC (3.98-10.04) K/mm3 RBC (3.98-5.22) M/mm3 Hgb (11.2-15.7) gm/dl Hct (34.1-44.9) % MCV (79.4-94.8) fl MCH (25.6-32.2) pg MCHC (32.2-35.5) g/dl RDW Std Deviation (36.4-46.3) fL Plt Count (182-369) K/mm3 MPV (9.4-12.3) fl Neutrophils % (Manual) (40-60) % Band Neutrophils % (0-10) % Lymphocytes % (Manual) (20-40) % Atypical Lymphs % % Monocytes % (Manual) (2-10) % Eosinophils % (Manual) (0.7-5.8) % Basophils % (Manual) (0.1-1.2) Platelet Estimate RBC Morph Comment PT (9.7-12.0) SECONDS INR APTT (21.7-31.4) SECONDS Sodium 143 (136-145) mEq/L Potassium 3.1 L (3.5-5.1) mEq/L Chloride 107 (98-107) mEq/L Carbon Dioxide 27 (21-32) mEq/L Anion Gap 12.1 (5-15) BUN 14 (7-18) mg/dL Creatinine 0.7 (0.55-1.02) mg/dL Est Cr Clr Drug Dosing 56.72 mL/min Estimated GFR (MDRD) > 60 (>60) mL/min BUN/Creatinine Ratio 20.0 H (14-18) Glucose 124 H (83-115) mg/dL POC Glucose (83-110) mg/dL Calcium 8.7 (8.5-10.1) mg/dL Magnesium 1.8 (1.8-2.4) mg/dl Total Bilirubin 0.6 (0.2-1.0) mg/dL AST 18 (15-37) U/L ALT 16 (14-59) U/L Alkaline Phosphatase 80 (46-116) U/L Total Protein 6.8 (6.4-8.2) g/dl Albumin 2.8 L (3.4-5.0) g/dl Globulin 4.0 gm/dL Albumin/Globulin Ratio 0.7 L (1-2) SARS-CoV-2 RNA (MIGUELINA) Negative (NEGATIVE) Result Diagrams: 12/21/20 22:59 12/21/20 22:59 Sepsis Event Note - Evaluation Sepsis Screening Result: No Definite Risk - Focused Exam Vital Signs: Vital Signs Temp Temp Pulse Pulse Resp BP BP 12/22/20 03:34 57 L 12/22/20 03:31 36.9 C 20 156/103 H 12/22/20 00:40 12/22/20 00:15 53 L 14 147/63 H 12/22/20 00:00 52 L 16 154/66 H 12/21/20 22:52 36.2 C 67 20 144/65 H Pulse Ox 12/22/20 03:34 98 12/22/20 03:31 12/22/20 00:40 88 L 12/22/20 00:15 93 L 12/22/20 00:00 90 L 12/21/20 22:52 95 Problem List Initiated/Reviewed/Updated: Yes Orders Last 24hrs: Active Orders 24 hr Category Date Time Status Patient Status [ADT] Routine ADT 12/22/20 04:56 Active Accu Check [Blood Glucose Check, Bedside] [RC] ONETIME Care 12/21/20 22:52 Act donna Bedrest [RC] BID Care 12/22/20 04:59 Active EKG Documentation Completion [RC] STAT Care 12/21/20 22:51 Active NPO Now [Nothing per Oral Now Diet] [DIET] Diet 12/22/20 Breakfast Active Head wo Cont [CT] Stat Exams 12/21/20 22:50 Taken Code Status [Resuscitation Status] Routine Resus Stat 12/22/20 04:58 Ordered Assessment/Plan Comment:: Impression/Plan: S/P hemorrhagic CVA Comfort Care Observation admission Query change to Hospice, TBD; have had family meeting for 15 minutes. Patient sons will meet with family to determine the final decision. - Mortality Measure Prognosis:: Poor
--- NOTE | 2020-12-22 07:57 | CT ---
Head CT Technique: Multiple axial sections through the brain were obtained. Intravenous contrast not utilized. Comparison: No prior intracranial imaging is available. Findings: Acute parenchymal hemorrhage is seen within the right parietotemporal region. This hemorrhage causes minimal subarachnoid blood. This hemorrhage measures approximately 4.6 cm x 5.2 cm x 4.9 cm. Surrounding low-density edema is seen around this area of hemorrhage. This finding causes local mass-effect upon the sulci as well as midline shift to the left side by about 7 mm. Effacement of the right lateral ventricle is noted. Atherosclerotic calcification is seen within the carotid siphon. No other areas of intracranial hemorrhage are appreciated. No other abnormal parenchymal densities are seen. Bone window settings were reviewed which show the visualized mastoid sinuses and visualized paranasal sinuses show nothing acute. No acute calvarial abnormality is appreciated. Impression: 1. Large right-sided parieto-temporal hemorrhage with surrounding mass-effect. This hemorrhage causes minimal subarachnoid blood. Measurements as noted above. This area causes mass-effect as described above as well as surrounding low-density edema. Diagnostic code #5 I agree with preliminary report from [facility], finalized on 12/22/20, 12:09 AM [facility]
[2020-12-22] MEDS ORDERED: Gabapentin 300 MG Cap PO PRN (08:18)
[2020-12-22] MEDS ORDERED: Non-Formulary Medication 1 Each (Hydrocodone/Acetaminophen 1 EACH) PO PRN (08:18)
[2020-12-22] MEDS: Morphine 2 MG/ML SYRINGE IVPUSH PRN ×3 (12:19→22:30)
[2020-12-22] MEDS: Benzonatate 100 MG Cap PO SCH ×2 (15:33→15:48)
[2020-12-22] MEDS: Gabapentin 100 MG Cap PO SCH ×2 (15:33→15:48)
[2020-12-22] MEDS: LORazepam 2 MG/ML SDV IVPUSH PRN (20:20)
[2020-12-23] MEDS: LORazepam 2 MG/ML SDV IVPUSH PRN ×3 (04:07→21:38)
[2020-12-23] MEDS: Morphine 2 MG/ML SYRINGE IVPUSH PRN ×3 (09:04→19:53)
--- NOTE | 2020-12-23 09:20 | PCM.PN ---
- General Info Date of Service: 12/23/20 Subjective Update: Patient is resting comfortably, able to follow simple commands. Family to decide code status/disposition regarding CC cf hospice. Functional Status: Reports: Pain Controlled, Tolerating Diet (ice chips) - Review of Systems General: Reports: No Symptoms HEENT: Reports: No Symptoms Pulmonary: Reports: No Symptoms Cardiovascular: Reports: No Symptoms Gastrointestinal: Reports: No Symptoms Genitourinary: Reports: No Symptoms Musculoskeletal: Reports: No Symptoms Skin: Reports: No Symptoms Neurological: Reports: No Symptoms Psychiatric: Reports: No Symptoms - Patient Data Vitals - Most Recent: Last Vital Signs Temp 37.2 C 12/22/20 20:19 Pulse 71 12/22/20 20:19 Resp 20 12/22/20 20:19 BP 154/61 H 12/22/20 20:19 Pulse Ox 97 12/22/20 20:19 Weight - Most Recent: 64.592 kg Med Orders - Current: Current Medications Lorazepam (Ativan) 0.5 mg IVPUSH Q4H PRN PRN Reason: Agitation Last Admin: 12/23/20 04:07 Dose: 0.5 mg Documented by: Morphine Sulfate (Morphine) 0.5 mg IVPUSH Q2H PRN PRN Reason: Pain (moderate 4-6) Last Admin: 12/23/20 09:04 Dose: 0.5 mg Documented by: Discontinued Medications Benzonatate (Tessalon Perles) 100 mg PO TID [facility] Last Admin: 12/22/20 15:48 Dose: Not Given Documented by: Gabapentin (Neurontin) 100 mg PO TID [facility] Last Admin: 12/22/20 15:48 Dose: Not Given Documented by: Gabapentin (Neurontin) 300 mg PO TID PRN PRN Reason: Pain - Exam Quality Assessment: DVT Prophylaxis General: Alert HEENT: Pupils Equal, Pupils Reactive, EOMI Neck: Trachea Midline Lungs: Normal Respiratory Effort Cardiovascular: Regular Rate GI/Abdominal Exam: Normal Bowel Sounds, Soft, Non-Tender (Female) Exam: Deferred Back Exam: Normal Inspection Extremities: Normal Inspection Skin: Warm Neurological: No New Focal Deficit Psy/Mental Status: Other (drowsy) - Patient Data Result Diagrams: 12/21/20 22:59 12/21/20 22:59 Sepsis Event Note - Evaluation Sepsis Screening Result: No Definite Risk - Problem List Review Problem List Initiated/Reviewed/Updated: Yes - My Orders Last 24 Hours: My Active Orders 12/22/20 08:22 Morphine 0.5 mg IVPUSH Q2H PRN 12/22/20 08:34 Resuscitation Status Routine 12/22/20 10:00 Insert Urinary Catheter [OM.PC] Q24H 12/22/20 10:29 Urinary Catheter Assessment [RC] , - Plan Plan:: Impression/Plan: S/P hemorrhagic CVA Comfort Care vs Hospice to be determined Observation admission Query change to Hospice, TBD Patient sons will meet with family to determine the final decision, 12/23/20.
[2020-12-23] MEDS: Dextrose 5%-Lactated Ringers 1,000 ML IV SCH (10:51)
[2020-12-23] MEDS ORDERED: Glycopyrrolate 1 MG Tab PO PRN (19:04)
[2020-12-24] MEDS: Dextrose 5%-Lactated Ringers 1,000 ML IV SCH ×2 (00:22→13:58)
[2020-12-24] MEDS: Morphine 2 MG/ML SYRINGE IVPUSH PRN ×6 (00:26→23:01)
[2020-12-24] MEDS: LORazepam 2 MG/ML SDV IVPUSH PRN ×5 (04:22→22:23)
--- NOTE | 2020-12-24 08:55 | PCM.PN ---
- General Info Date of Service: 12/24/20 Functional Status: Reports: Urinating - Review of Systems General: Reports: No Symptoms HEENT: Reports: No Symptoms Pulmonary: Reports: No Symptoms Cardiovascular: Reports: No Symptoms Gastrointestinal: Reports: No Symptoms Genitourinary: Reports: No Symptoms Musculoskeletal: Reports: No Symptoms Skin: Reports: No Symptoms Neurological: Reports: No Symptoms Psychiatric: Reports: No Symptoms - Patient Data Vitals - Most Recent: Last Vital Signs Temp 37.1 C 12/23/20 19:51 Pulse 65 12/23/20 19:52 Resp 20 12/23/20 19:52 BP 181/64 H 12/23/20 19:51 Pulse Ox 93 L 12/23/20 19:52 Weight - Most Recent: 64.592 kg Med Orders - Current: Current Medications Glycopyrrolate (Robinul) 1 mg .XX Q12H PRN PRN Reason: secretions Dextrose/Lactated Ringer's (Dextrose 5%-Lactated Ringers) 1,000 mls @ 75 mls/hr IV ASDIRECTED [facility] Last Admin: 12/24/20 00:22 Dose: 75 mls/hr Documented by: Lorazepam (Ativan) 0.5 mg IVPUSH Q4H PRN PRN Reason: Agitation Last Admin: 12/24/20 08:32 Dose: 0.5 mg Documented by: Morphine Sulfate (Morphine) 0.5 mg IVPUSH Q2H PRN PRN Reason: Pain (moderate 4-6) Last Admin: 12/24/20 06:38 Dose: 0.5 mg Documented by: Discontinued Medications Benzonatate (Tessalon Perles) 100 mg PO TID [facility] Last Admin: 12/22/20 15:48 Dose: Not Given Documented by: Gabapentin (Neurontin) 100 mg PO TID [facility] Last Admin: 12/22/20 15:48 Dose: Not Given Documented by: Gabapentin (Neurontin) 300 mg PO TID PRN PRN Reason: Pain Glycopyrrolate () 1 mg IVPUSH Q12H PRN PRN Reason: secretions Glycopyrrolate (Robinul) 1 mg PO BID PRN PRN Reason: secretions - Exam Quality Assessment: DVT Prophylaxis General: Lethargic HEENT: Pupils Equal, Pupils Reactive Neck: Trachea Midline Lungs: Normal Respiratory Effort Cardiovascular: Regular Rate, Regular Rhythm GI/Abdominal Exam: Normal Bowel Sounds, Soft, Non-Tender, No Distention (Female) Exam: Deferred Back Exam: Normal Inspection Extremities: Normal Inspection Skin: Warm Neurological: No New Focal Deficit Psy/Mental Status: Other (lethargic) - Patient Data Result Diagrams: 12/21/20 22:59 12/21/20 22:59 Sepsis Event Note - Evaluation Sepsis Screening Result: No Definite Risk - Problem List Review Problem List Initiated/Reviewed/Updated: Yes - My Orders Last 24 Hours: My Active Orders 12/23/20 10:15 Dextrose 5%-Lactated Ringers 1,000 ml IV ASDIRECTED 12/23/20 17:13 Patient Status [ADT] Routine 12/23/20 19:07 Glycopyrrolate [Robinul] 1 mg .XX Q12H PRN - Plan Plan:: Impression/Plan: S/P hemorrhagic CVA Comfort Care vs Hospice to be determined Observation admission Query change to Hospice, TBD LOS>96 hours pending decision for CC vs Hospice
[2020-12-24] MEDS: Glycopyrrolate 0.2 MG/ML SDV PRN (11:14)
[2020-12-25] MEDS: Morphine 2 MG/ML SYRINGE IVPUSH PRN ×10 (01:06→22:09)
[2020-12-25] MEDS: Dextrose 5%-Lactated Ringers 1,000 ML IV SCH ×2 (05:17→18:37)
--- NOTE | 2020-12-25 08:27 | PCM.PN ---
- General Info Date of Service: 12/25/20 Admission Dx/Problem (Free Text): Admission Diagnosis/Problem Admission Diagnosis/Problem Intracranial hemorrhage Subjective Update: In to see Yasmine. She is laying in bed and essentially unresponsive. She does have some gurgling respirations. Glycopyrrolate was added but this is reportedly 5 mL of fluid we will switch to SL atropine for excessive secretions. Continue IV push Ativan and morphine for comfort cares today. Discussed plan of care with family and they would like hospice consultation including hospital bed and other supplies at home. Hopeful for admit to hospice and ability to obtain equipment within next 24 hours for discharge. We will continue IV fluids today at family request and continue oxygen therapy. Family is at bedside. Functional Status: Reports: Pain Controlled (Appears controlled per family and nursing ), Urinating (Porter in place ). Denies: Tolerating Diet (NPO), Ambulating, New Symptoms - Review of Systems Systems Review Comment:: Unable to obtain ROS due to patient's mental status. Patient is comfort measures. - Patient Data Vitals - Most Recent: Last Vital Signs Temp 98.8 F 12/24/20 19:40 Pulse 60 12/24/20 19:51 Resp 32 H 12/24/20 19:40 BP 178/85 H 12/24/20 19:40 Pulse Ox 86 L 12/24/20 19:51 Weight - Most Recent: 142 lb 6.4 oz Med Orders - Current: Current Medications Glycopyrrolate (Robinul) 1 mg .XX Q12H PRN PRN Reason: secretions Last Admin: 12/24/20 11:14 Dose: 1 mg Documented by: Dextrose/Lactated Ringer's (Dextrose 5%-Lactated Ringers) 1,000 mls @ 75 mls/hr IV ASDIRECTED [facility] Last Admin: 12/25/20 05:17 Dose: 75 mls/hr Documented by: Lorazepam (Ativan) 0.5 mg IVPUSH Q4H PRN PRN Reason: Agitation Last Admin: 12/24/20 22:23 Dose: 0.5 mg Documented by: Morphine Sulfate (Morphine) 0.5 mg IVPUSH Q2H PRN PRN Reason: Pain (moderate 4-6) Last Admin: 12/25/20 07:38 Dose: 0.5 mg Documented by: Discontinued Medications Benzonatate (Tessalon Perles) 100 mg PO TID [facility] Last Admin: 12/22/20 15:48 Dose: Not Given Documented by: Gabapentin (Neurontin) 100 mg PO TID [facility] Last Admin: 12/22/20 15:48 Dose: Not Given Documented by: Gabapentin (Neurontin) 300 mg PO TID PRN PRN Reason: Pain Glycopyrrolate () 1 mg IVPUSH Q12H PRN PRN Reason: secretions Glycopyrrolate (Robinul) 1 mg PO BID PRN PRN Reason: secretions - Exam Quality Assessment: Supplemental Oxygen (2L family request ), Urine Catheter ([facility] ). No: DVT Prophylaxis (comfort care ) General: Obtunded Neck: Supple, Trachea Midline Lungs: Normal Respiratory Effort, Decreased Breath Sounds, Rhonchi Cardiovascular: Regular Rate, Regular Rhythm GI/Abdominal Exam: Normal Bowel Sounds, Soft, No Distention (Female) Exam: Deferred Extremities: Normal Inspection, Normal Capillary Refill, Pedal Edema Skin: Warm, Dry, Intact - Patient Data Result Diagrams: 12/21/20 22:59 12/21/20 22:59 Sepsis Event Note - Evaluation Sepsis Screening Result: No Definite Risk - Problem List & Annotations (1) Comfort measures only status SNOMED Code(s): 79834417943453 Code(s): Z51.5 - ENCOUNTER FOR PALLIATIVE CARE Status: Acute Priority: High Current Visit: Yes (2) Admission for hospice care SNOMED Code(s): 060360711, 885798021, 789053138 Code(s): Z51.5 - ENCOUNTER FOR PALLIATIVE CARE Status: Acute Priority: High Current Visit: Yes (3) Intracranial hemorrhage SNOMED Code(s): 2182612 Code(s): I62.9 - NONTRAUMATIC INTRACRANIAL HEMORRHAGE, UNSPECIFIED Status: Acute Priority: High Current Visit: Yes - Problem List Review Problem List Initiated/Reviewed/Updated: Yes - My Orders Last 24 Hours: My Active Orders 12/25/20 07:35 Consult to Case Management/Service Line Coordinator [CONS] Routine Consult to Hospice [CONS] Routine - Plan Plan:: Impression/Plan: S/P hemorrhagic CVA Comfort Care with hospice consultation Observation admission -> upgraded to inpatient Continue IV push morphine for pain Continue IV push Ativan for anxiety Switch glycopyrrolate to sublingual atropine for excessive secretions Arrange equipment for discharge on hospice Social work/case management consultation Continue IV fluids and oxygen therapy per family request Continue Porter catheter for comfort cares Hopeful for discharge in next 24 hours on hospice care LOS>96 hours pending decision for CC vs Hospice
[2020-12-25] MEDS: Glycopyrrolate 0.2 MG/ML SDV PRN (10:58)
[2020-12-25] MEDS ORDERED: Atropine 1% Ophth Soln 5 ML BOTTLE SL PRN (11:08)
[2020-12-26] MEDS: Morphine 2 MG/ML SYRINGE IVPUSH PRN ×4 (00:09→06:40)
[2020-12-26] MEDS: Dextrose 5%-Lactated Ringers 1,000 ML IV SCH (07:55)
[2020-12-26 08:20] VITALS: BP 153/70; PULSE 50
--- NOTE | 2020-12-26 09:59 | PCM.DCSUM1 ---
Discharge Summary - Hospital Course HPI Initial Comments: 79 year old female presented as a stroke alert. She had left sided weakness, and a headache. The patient has been admitted for Comfort Care. She has had a hemorrhagic CVA. A CT of the head documented a large right cerebral hemispheric hemorrhage. The size is 5.1 x 4.3 x 5.0 cm; the area has as expected vasogenic edema and a mass effect with midline shift. A meeting with her POA will occur today. Diagnosis: Stroke: No - Discharge Data Discharge Date: 12/26/20 (Admit date: 12/21/20) Discharge Disposition: DC/Tfer to Hospice - Home 48 Condition: Poor - Referral to Home Health Primary Care Physician: Leilani Mann MD - Discharge Diagnosis/Problem(s) (1) Comfort measures only status SNOMED Code(s): 10736587947176 ICD Code: Z51.5 - ENCOUNTER FOR PALLIATIVE CARE Status: Acute Priority: High Current Visit: Yes (2) Admission for hospice care SNOMED Code(s): 165791894, 600272172, 878844990 ICD Code: Z51.5 - ENCOUNTER FOR PALLIATIVE CARE Status: Acute Priority: High Current Visit: Yes (3) Intracranial hemorrhage SNOMED Code(s): 1191107 ICD Code: I62.9 - NONTRAUMATIC INTRACRANIAL HEMORRHAGE, UNSPECIFIED Status: Acute Priority: High Current Visit: Yes - Patient Summary/Data Consults: Consultations 12/25/20 07:35 Consult to Case Management/[employer] [CONS] Routine Consult to Hospice [CONS] Routine Labs Pending at D/C: None Recommended Follow-up Testing/Procedures: Follow-up as needed for hospice/comfort care Hospital Course: Yasmine is an 79-year-old female who was brought to the emergency room after her son found her on the floor with left-sided facial weakness and left hemiparesis. Stroke alert is called. She is noted to have an acute intraparenchymal hemorrhage in the right cerebral hemisphere measuring up to 5.1 x 4.3 x 5.0 cm with a moderate amount of surrounding vasogenic edema. Small amount of adjacent acute subarachnoid hemorrhage and mass-effect with right to left midline shift measuring 7 mm is also noted. Case was discussed by the ED provider with Dr. Cedeno neurosurgeon at [facility]. He reported that this patient would be very high risk and he did not feel was appropriate to take her to the operating room. Dr. Cook neurosurgeon at [facility] in [place] was contacted and recommended against surgery. He stated that a bleed like this would most likely be fatal although he could not predict how long this would take. Case was discussed with the patient's 2 sons who reported that they would not want to be very aggressive with her management given the situation. She was made DNR/DNI/comfort measures and ultimately admitted observation status. As planning for disposition was taking quite some time she was ultimately upgraded to inpatient. She was given IV fluids and oxygen at the family's request. Porter catheter was placed for comfort care. She was given IV morphine for pain and Ativan for anxiety. She was given p.o. glycopyrrolate and ultimately switched to sublingual atropine for excessive secretions. Patient remained mostly lethargic although on Friday she did have an episode where she was reportedly talking somewhat. Patient was moving right hand occasionally. She did appear to be somewhat comfortable. Social work was consulted and ultimately family requested hospice care. Arrangements were made for the patient to have a hospital bed and other equipment at home. She will be admitted into hospice today. Ambulance was contacted to arrange transport home. She will be discharged on 20 mg/mL liquid morphine with 5 mg p.o. every 2 hour as needed for pain. 2 mg/mL Ativan with 0.5 mg p.o. every 6 hours as needed for anxiety and restlessness. She also prescribed 1% atropine drops 2 drops sublingual every 2 hours as needed for excessive secretions. IV was discontinued prior to discharge. She should follow-up as needed for comfort care. Discharged home today via ambulance. - Patient Instructions Diet: NPO Other/Special Instructions: Follow-up as needed for comfort care. Discharging to hospice - Discharge Plan *PRESCRIPTION DRUG MONITORING PROGRAM REVIEWED*: Not Applicable *COPY OF PRESCRIPTION DRUG MONITORING REPORT IN PATIENT ZUALY: Not Applicable Prescriptions/Med Rec: LORazepam [Ativan] 0.5 mg PO Q6H PRN #10 ml PRN Reason: Anxiety/restlessness Atropine 1% [Atropine 1% Ophth Soln] 2 drop SL Q2H PRN #1 bottle PRN Reason: excessive secretions Morphine [Morphine 20 MG/ML Soln] 5 mg PO Q2H PRN #10 ml PRN Reason: Pain Home Medications: Home Meds Atropine 1% [Atropine 1% Ophth Soln] 2 drop SL Q2H PRN #1 bottle 12/26/20 [Rx] LORazepam [Ativan] 0.5 mg PO Q6H PRN #10 ml 12/26/20 [Rx] Morphine [Morphine 20 MG/ML Soln] 5 mg PO Q2H PRN #10 ml 12/26/20 [Rx] Oxygen Therapy Mode: Nasal Cannula Oxygen Flow Rate (L/min): 2 (as needed for comfort care ) Patient Handouts: Hospice Forms: ED Department Discharge Referrals: Desire Coughlin, COVER MARKER [Nurse Practitioner] - (follow up with your doctor as needed for hospice care) - Discharge Summary/Plan Comment DC Time >30 min.: Yes (45 mins ) - General Info Date of Service: 12/26/20 Admission Dx/Problem (Free Text: Admission Diagnosis/Problem Admission Diagnosis/Problem Intracranial hemorrhage - Review of Systems Systems Review Comment: Unable to obtain ROS due to patient's baseline mental status. Per nursing and family present in room patient appears comfortable. She is on 2 L of oxygen and IV fluid is running at 75 mils an hour. She had good urine output. - Patient Data Vitals - Most Recent: Last Vital Signs Temp 97.5 F 12/26/20 08:04 Pulse 50 L 12/26/20 08:04 Resp 20 12/26/20 08:04 BP 153/70 H 12/26/20 08:04 Pulse Ox 91 L 12/26/20 08:04 Weight - Most Recent: 142 lb 6.4 oz Med Orders - Current: Current Medications Atropine Sulfate (Atropine 1% Ophth Soln) 0 ml SL Q2H PRN PRN Reason: excessive secretions Last Admin: 12/26/20 00:11 Dose: 0.25 ml Documented by: Dextrose/Lactated Ringer's (Dextrose 5%-Lactated Ringers) 1,000 mls @ 75 mls/hr IV ASDIRECTED [facility] Last Admin: 12/26/20 07:55 Dose: 75 mls/hr Documented by: Lorazepam (Ativan) 0.5 mg IVPUSH Q4H PRN PRN Reason: Agitation Last Admin: 12/24/20 22:23 Dose: 0.5 mg Documented by: Morphine Sulfate (Morphine) 0.5 mg IVPUSH Q2H PRN PRN Reason: Pain (moderate 4-6) Last Admin: 12/26/20 06:40 Dose: 0.5 mg Documented by: Discontinued Medications Benzonatate (Tessalon Perles) 100 mg PO TID [facility] Last Admin: 12/22/20 15:48 Dose: Not Given Documented by: Gabapentin (Neurontin) 100 mg PO TID [facility] Last Admin: 12/22/20 15:48 Dose: Not Given Documented by: Gabapentin (Neurontin) 300 mg PO TID PRN PRN Reason: Pain Glycopyrrolate () 1 mg IVPUSH Q12H PRN PRN Reason: secretions Glycopyrrolate (Robinul) 1 mg PO BID PRN PRN Reason: secretions Glycopyrrolate (Robinul) 1 mg .XX Q12H PRN PRN Reason: secretions Last Admin: 12/25/20 10:58 Dose: 1 mg Documented by: - Exam Quality Assessment: Reports: Supplemental Oxygen (2L), Urine Catheter (For comfort care). Denies: DVT Prophylaxis (Comfort care) General: Reports: Obtunded Lungs: Reports: Normal Respiratory Effort, Rhonchi (Significant). Denies: Wheezing Cardiovascular: Reports: Regular Rhythm, Bradycardia GI/Abdominal Exam: Soft, Abnormal Bowel Sounds (Hypoactive) Extremities: Normal Inspection, Pedal Edema (Left worse than right)
== END 2020-12-26 11:40 | disposition hospice, home (50) | DRG 64 ==
LOC: JD.ED 22:42 → INTOOBSV 12-22 01:50 → JD.MS 12-22 01:50 → OBSVTOIN 12-23 17:13
PROVIDERS: ADMIT Internal Medicine Cardiovascular Disease; ATTEND Internal Medicine Cardiovascular Disease
DX: I62.9 Nontraumatic intracranial hemorrhage, unspecified (principal); G93.6 Cerebral edema; G81.94 Hemiplegia, unspecified affecting left nondominant side; Z51.5 Encounter for palliative care; I60.9 Nontraumatic subarachnoid hemorrhage, unspecified; Z66 Do not resuscitate; E87.6 Hypokalemia; F17.200 Nicotine dependence, unspecified, uncomplicated; F41.9 Anxiety disorder, unspecified; Z91.048 Other nonmedicinal substance allergy status; F17.210 Nicotine dependence, cigarettes, uncomplicated; Z20.822 Contact with and (suspected) exposure to COVID-19; R45.1 Restlessness and agitation; I10 Essential (primary) hypertension; M19.90 Unspecified osteoarthritis, unspecified site; M81.0 Age-related osteoporosis without current pathological fracture; E03.9 Hypothyroidism, unspecified; M54.12 Radiculopathy, cervical region; Z98.49 Cataract extraction status, unspecified eye; Z90.49 Acquired absence of other specified parts of digestive tract; Z79.899 Other long term (current) drug therapy; Z87.440 Personal history of urinary (tract) infections; Z88.1 Allergy status to other antibiotic agents; Z91.09 Other allergy status, other than to drugs and biological substances; Z79.82 Long term (current) use of aspirin
CPT/HCPCS: 36415; 51702; 70450; 70450-26; 80053; 82962; 83735; 85007; 85027; 85610; 85730; 93005; 93010; 94760; 96374; 96375; 96376; 99232; 99239; 99285; 99285-25; A9270-GY; G0378; J2060; J2270; J3490; J7121; U0002